=== PATIENT | female | born 1995 | race Two or more races ===

== ENCOUNTER → 2024-12-30 | Outpatient (CLI) | payer MEDICAID, SELFPAY ==
--- NOTE | 2024-12-30 09:00 | XR_ITS ---
Examination: CT chest with intravenous contrast CT chest without intravenous contrast 2-D reconstructions Date and time of exam:December 30, 2024 1037 hours INDICATIONS: Palpable lump in the upper chest right upper limb right axilla one year CTDI:vol (mGy) 14.7 DLP: (mGycm) 477 Technique: Multiple axial sections of the thorax have been obtained. 3 mm slice thickness, from the hemidiaphragms to above the apices of the lungs. Mediastinal and lung density settings have been obtained. Intravenous contrast administered 60 cc [id number]-[id number]. Noncontrast images have also been obtained. 2-D sagittal coronal images obtained. Low dose protocols were performed. One or more of the following dose reduction techniques were used; automated exposure control, adjustment of the mA and/or KV according to patient size, use of iterative reconstruction technique. Findings: No thoracic aortic aneurysmal dilatation or dissection No pulmonary artery filling defects No paratracheal tracheobronchial or bronchopulmonary adenopathy Small bilateral axillary lymph nodes No breast or chest wall mass No pneumonia, pulmonary edema or pleural disease Skin thickening in the right axilla, axial image 26, measuring up to 8 mm in thickness No visualized liver or splenic lesion No gallstones Suspicious for 2 mm right renal calculus Intact osseous structures IMPRESSION: Skin thickening in the right axilla measuring up to 8 mm in thickness Recommend bilateral breast axillary sonography follow-up Suspicious for 2 mm right renal calculus, recommend renal sonography follow-up
[2024-12-30 09:51] LABS: HCG Qualitative,Urine Negative
== END | disposition home or self-care (01) ==
PROVIDERS: Referring Provider Family Medicine; Visit Provider Family Medicine
DX: L85.8 Other specified epidermal thickening (principal); Z32.00 Encounter for pregnancy test, result unknown
CPT/HCPCS: 71270; 81025; A4649; Q9967